=== PATIENT | female | born 1945 | race Caucasian/White ===

== ENCOUNTER 2017-02-18 16:33 | Inpatient (IN) ==
[2017-02-18] MEDS ORDERED: HYDROcodone/CHLORPHENIRAMINE ER 5 ML UDCUP PO ONE ×2 (17:43→18:40)
[2017-02-18] MEDS ORDERED: ALBUTEROL/IPRATROPIUM 3 ML NEB RESP TX STA (17:43)
[2017-02-18 18:59] LABS: Basophils # 0.1 10*3/uL (0.0-0.2); Basophils % 0.8 % (0.0-0.8); Eosinophils # 0.1 10*3/uL (0.0-0.87); Eosinophils % 1.3 % (0.00-10.9); Hematocrit 37.7 VOL% (35.7-47.0); Hemoglobin 12.5 GM/DL (12.0-16.0); Immature Granulocytes % 0.1 %; Immature Granulocytes Absolute 0.01 #; Lymphocytes # 7.1 10*3/uL (1.4-4.0); Lymphocytes % 79.6 % (21.3-54.2); Mean Corpuscular HGB Conc 33.2 GM/DL (32-36); Mean Corpuscular Hemoglobin 29 PG (27-34); Mean Corpuscular Volume 86.3 FL (87-102); Mean Platelet Volume 10.8 FL (9.6-12.0); Monocytes # 0.9 10*3/uL (0.11-0.8); Monocytes % 10.3 % (1.7-12.7); Neutrophils # 0.7 10*3/uL (1.4-7.4); Neutrophils % 7.9 % (38.7-73.9); Platelet Count 147 T/CUMM (130-400); Red Blood Count 4.37 MC/CUMM (3.8-5.5); Red Cell Distribution Width 14.5 % (9.3-17.3); White Blood Count 8.9 T/CUMM (4-12)
[2017-02-18 19:13] LABS: Lactic Acid 0.5 MMOL/L (0.4-2.0)
[2017-02-18 19:15] LABS: Albumin 3.2 G/DL (3.4-5.0); Bilirubin,Total 0.6 MG/DL (0.2-1.0); Calcium 8.1 MG/DL (8.5-10.1); Osmolality,Calculated 275.5 MOS/KG (273-304); Potassium 3.6 MMOL/L (3.5-5.1); Total Protein 5.8 G/DL (6.4-8.3)
[2017-02-18] MEDS ORDERED: AZITHROMYCIN INJ 500 MG in SODIUM CHLORIDE 0.9% 250 ML IV STA (20:02)
[2017-02-18] MEDS ORDERED: cefTRIAXone 1,000 MG in SODIUM CHLORIDE 0.9% 100 ML IV STA (20:02)
[2017-02-18] MEDS ORDERED: cefTRIAXone 1,000 MG VIAL ONE (20:09)
[2017-02-18] MEDS ORDERED: AZITHROMYCIN 500 MG VIAL IV ONE (20:09)
[2017-02-18 20:19] LABS: Apearance,Urine CLEAR (Clear); Bacteria,Urine Occasional /HPF (Few); Bilirubin,Urine Negative (Negative); Blood, Urine Negative (Negative); Glucose,Urine (UA) Negative (Negative); Ketones,Urine Negative (Negative); Nitrite,Urine Negative (Negative); Protein,Urine Negative; RBC,Urine 1 /HPF (0-4); Squamous Epithelial Cell,Urine Occasional /HPF (0-10); Urine Color Yellow (Yellow); Urine Specific Gravity > 1.060 (1.001-1.035); WBC,Urine 1 /HPF (0-6)
[2017-02-18 20:31] LABS: Eosinophils 2 % (0-10); Lymphocytes 90 % (20-55); Platelet Estimate Normal; Segmented Neutrophils 7 % (50-85); Total Cells Counted 100
[2017-02-18 20:32] LABS: Atypical Lymphocytes Moderate; Reactive Lymphocytes Few; Smudge Cells Few
[2017-02-18] MEDS ORDERED: ONDANSETRON 4 MG/2 ML VIAL IV PRN (21:34)
[2017-02-18] MEDS ORDERED: LEVOFLOXACIN INJ 750 MG in PREMIX 1 EACH IV STA (21:37)
[2017-02-18] MEDS: SODIUM CHLORIDE 0.45% 1,000 ML IV SCH (22:43)
[2017-02-18] MEDS: ENOXAPARIN 40 MG/0.4 ML SYRINGE SUBCUT SCH (23:20)
[2017-02-18] MEDS: ALBUTEROL/IPRATROPIUM 3 ML NEB RESP TX SCH (23:30)
[2017-02-19] MEDS: ALBUTEROL/IPRATROPIUM 3 ML NEB RESP TX SCH ×6 (03:11→23:33)
[2017-02-19] MEDS: ACETAMINOPHEN 325 MG TABLET PO PRN (03:32)
[2017-02-19 04:50] LABS: Basophils % 0.3 % (0.0-0.8); Eosinophils # 0.1 10*3/uL (0.0-0.87); Hematocrit 33.9 VOL% (35.7-47.0); Hemoglobin 11.2 GM/DL (12.0-16.0); Lymphocytes # 7.5 10*3/uL (1.4-4.0); Lymphocytes % 76.9 % (21.3-54.2); Mean Corpuscular Hemoglobin 29 PG (27-34); Mean Corpuscular Volume 86.3 FL (87-102); Mean Platelet Volume 10.5 FL (9.6-12.0); Monocytes # 1.5 10*3/uL (0.11-0.8); Monocytes % 14.9 % (1.7-12.7); Neutrophils # 0.7 10*3/uL (1.4-7.4); Neutrophils % 6.9 % (38.7-73.9); Platelet Count 136 T/CUMM (130-400); Red Blood Count 3.93 MC/CUMM (3.8-5.5); Red Cell Distribution Width 14.5 % (9.3-17.3); White Blood Count 9.8 T/CUMM (4-12)
[2017-02-19 05:08] LABS: Calcium 7.8 MG/DL (8.5-10.1); Osmolality,Calculated 276.4 MOS/KG (273-304); Potassium 3.2 MMOL/L (3.5-5.1)
[2017-02-19 06:38] LABS: Eosinophils 1 % (0-10); Lymphocytes 96 % (20-55); Segmented Neutrophils 3 % (50-85); Total Cells Counted 100
[2017-02-19 06:40] LABS: Anisocytosis 1+; Hypochromasia 1+; Platelet Estimate Normal; Tear Drop Cells 1+
[2017-02-19] MEDS: FLUTICASONE 50 MCG NASAL SPRAY 16 GM BOTTLE BOTH NARES SCH ×2 (09:55→23:16)
[2017-02-19] MEDS: amLODIPine 10 MG TABLET PO SCH (09:56)
[2017-02-19] MEDS: PANTOPRAZOLE 40 MG TABLET PO SCH (09:56)
[2017-02-19] MEDS ORDERED: ZALEPLON 5 MG CAPSULE PO PRN (11:04)
[2017-02-19] MEDS ORDERED: PIPERACILLIN/TAZOBACTAM 3,375 MG in SODIUM CHLORIDE 0.9% 100 ML IV SCH (12:00)
[2017-02-19] MEDS: LACTOBACILLUS ACIDOPHILUS/BULGARICUS CAPLET PO SCH ×2 (12:39→21:47)
[2017-02-19] MEDS: AZITHROMYCIN INJ 500 MG in SODIUM CHLORIDE 0.9% 250 ML IV SCH (13:23)
[2017-02-19] MEDS: PIPERACILLIN/TAZOBACTAM 3,375 MG in SODIUM CHLORIDE 0.9% 100 ML IV SCH ×2 (14:47→21:46)
[2017-02-19] MEDS ORDERED: POTASSIUM CHLORIDE 20 MEQ TABLET PO PRN (15:18)
[2017-02-19] MEDS: BENZONATATE 100 MG CAPSULE PO SCH (21:47)
[2017-02-19] MEDS: SODIUM CHLORIDE 0.45% 1,000 ML IV SCH (21:49)
[2017-02-19] MEDS: ENOXAPARIN 40 MG/0.4 ML SYRINGE SUBCUT SCH (23:16)
[2017-02-20] MEDS: ALBUTEROL/IPRATROPIUM 3 ML NEB RESP TX SCH ×6 (03:53→23:10)
[2017-02-20] MEDS: PIPERACILLIN/TAZOBACTAM 3,375 MG in SODIUM CHLORIDE 0.9% 100 ML IV SCH ×3 (05:05→21:37)
[2017-02-20] MEDS: BENZONATATE 100 MG CAPSULE PO SCH ×2 (09:36→21:37)
[2017-02-20] MEDS: PANTOPRAZOLE 40 MG TABLET PO SCH (09:36)
[2017-02-20] MEDS: MULTIVITAMIN (BEROCCA) TABLET PO SCH (09:36)
[2017-02-20] MEDS: LACTOBACILLUS ACIDOPHILUS/BULGARICUS CAPLET PO SCH ×2 (09:36→21:37)
[2017-02-20] MEDS: amLODIPine 10 MG TABLET PO SCH (09:36)
[2017-02-20] MEDS: FLUTICASONE 50 MCG NASAL SPRAY 16 GM BOTTLE BOTH NARES SCH ×2 (09:48→21:58)
[2017-02-20] MEDS: AZITHROMYCIN INJ 500 MG in SODIUM CHLORIDE 0.9% 250 ML IV SCH (12:16)
[2017-02-20] MEDS: SODIUM CHLORIDE 0.45% 1,000 ML IV SCH ×2 (12:17→19:49)
[2017-02-20] MEDS: ACETAMINOPHEN 325 MG TABLET PO PRN (17:02)
[2017-02-20] MEDS: VANCOMYCIN INJ 1,250 MG in SODIUM CHLORIDE 0.45% 250 ML IV SCH (19:44)
[2017-02-20] MEDS: ENOXAPARIN 40 MG/0.4 ML SYRINGE SUBCUT SCH (21:36)
[2017-02-21] MEDS: VANCOMYCIN INJ 1,250 MG in SODIUM CHLORIDE 0.45% 250 ML IV SCH ×3 (03:00→18:29)
[2017-02-21] MEDS: ALBUTEROL/IPRATROPIUM 3 ML NEB RESP TX SCH ×5 (03:58→21:25)
[2017-02-21] MEDS: PIPERACILLIN/TAZOBACTAM 3,375 MG in SODIUM CHLORIDE 0.9% 100 ML IV SCH ×3 (04:56→22:52)
[2017-02-21] MEDS: AZITHROMYCIN INJ 500 MG in SODIUM CHLORIDE 0.9% 250 ML IV SCH (08:21)
[2017-02-21] MEDS: ESCITALOPRAM 10 MG TABLET PO SCH (08:23)
[2017-02-21] MEDS: ACETAMINOPHEN 325 MG TABLET PO PRN (08:23)
[2017-02-21] MEDS: LACTOBACILLUS ACIDOPHILUS/BULGARICUS CAPLET PO SCH ×2 (08:23→20:47)
[2017-02-21] MEDS: MULTIVITAMIN (BEROCCA) TABLET PO SCH (08:24)
[2017-02-21] MEDS: BENZONATATE 100 MG CAPSULE PO SCH ×2 (08:24→20:47)
[2017-02-21] MEDS: FLUTICASONE 50 MCG NASAL SPRAY 16 GM BOTTLE BOTH NARES SCH ×2 (08:24→20:47)
[2017-02-21] MEDS: PANTOPRAZOLE 40 MG TABLET PO SCH (08:24)
[2017-02-21] MEDS: amLODIPine 10 MG TABLET PO SCH (08:24)
[2017-02-21] MEDS: methylPREDNISolone SOD SUC 125 MG/2 ML VIAL IV SCH (11:23)
[2017-02-21 12:57] LABS: Calcium 7.9 MG/DL (8.5-10.1); Osmolality,Calculated 278.4 MOS/KG (273-304)
[2017-02-21] MEDS: ENOXAPARIN 40 MG/0.4 ML SYRINGE SUBCUT SCH (20:46)
[2017-02-22] MEDS: methylPREDNISolone SOD SUC 125 MG/2 ML VIAL IV SCH ×2 (00:14→11:54)
[2017-02-22] MEDS: ALBUTEROL/IPRATROPIUM 3 ML NEB RESP TX SCH ×7 (00:28→23:25)
[2017-02-22] MEDS: VANCOMYCIN INJ 1,250 MG in SODIUM CHLORIDE 0.45% 250 ML IV SCH ×2 (03:06→11:55)
[2017-02-22 05:34] LABS: Basophils # 0.1 10*3/uL (0.0-0.2); Basophils % 0.6 % (0.0-0.8); Hematocrit 37.3 VOL% (35.7-47.0); Hemoglobin 11.9 GM/DL (12.0-16.0); Immature Granulocytes % 0.4 %; Immature Granulocytes Absolute 0.06 #; Lymphocytes # 14.5 10*3/uL (1.4-4.0); Lymphocytes % 85.3 % (21.3-54.2); Mean Corpuscular HGB Conc 31.9 GM/DL (32-36); Mean Corpuscular Hemoglobin 28 PG (27-34); Mean Corpuscular Volume 88.2 FL (87-102); Mean Platelet Volume 11.4 FL (9.6-12.0); Monocytes # 1.1 10*3/uL (0.11-0.8); Monocytes % 6.4 % (1.7-12.7); Neutrophils # 1.2 10*3/uL (1.4-7.4); Neutrophils % 7.3 % (38.7-73.9); Platelet Count 166 T/CUMM (130-400); Red Blood Count 4.23 MC/CUMM (3.8-5.5); Red Cell Distribution Width 14.5 % (9.3-17.3)
[2017-02-22] MEDS: SODIUM CHLORIDE 0.45% 1,000 ML IV SCH (06:00)
[2017-02-22 06:03] LABS: Atypical Lymphocytes Moderate; Lymphocytes 90 % (20-55); Segmented Neutrophils 8 % (50-85); Smudge Cells Few; Total Cells Counted 100
[2017-02-22 06:06] LABS: Hypochromasia 1+; Microcytosis 1+
[2017-02-22 06:07] LABS: Ovalocytes Slight
[2017-02-22 06:08] LABS: Platelet Estimate Adequate
[2017-02-22] MEDS: PIPERACILLIN/TAZOBACTAM 3,375 MG in SODIUM CHLORIDE 0.9% 100 ML IV SCH ×3 (06:38→20:39)
[2017-02-22] MEDS: LACTOBACILLUS ACIDOPHILUS/BULGARICUS CAPLET PO SCH ×2 (08:38→20:38)
[2017-02-22] MEDS: MULTIVITAMIN (CENTRUM) TABLET PO SCH (08:38)
[2017-02-22] MEDS: MULTIVITAMIN (BEROCCA) TABLET PO SCH (08:38)
[2017-02-22] MEDS: BENZONATATE 100 MG CAPSULE PO SCH ×2 (08:38→20:38)
[2017-02-22] MEDS: ESCITALOPRAM 10 MG TABLET PO SCH (08:39)
[2017-02-22] MEDS: PANTOPRAZOLE 40 MG TABLET PO SCH (08:39)
[2017-02-22] MEDS: amLODIPine 10 MG TABLET PO SCH (08:39)
[2017-02-22] MEDS: FLUTICASONE 50 MCG NASAL SPRAY 16 GM BOTTLE BOTH NARES SCH ×2 (08:39→20:40)
[2017-02-22] MEDS ORDERED: ESCITALOPRAM 10 MG TABLET PO SCH (09:00)
[2017-02-22 09:23] LABS: Calcium 8.6 MG/DL (8.5-10.1); Magnesium 2.4 MG/DL (1.8-2.4); Osmolality,Calculated 288.1 MOS/KG (273-304); Potassium 3.4 MMOL/L (3.5-5.1)
[2017-02-22] MEDS: AZITHROMYCIN INJ 500 MG in SODIUM CHLORIDE 0.9% 250 ML IV SCH (10:27)
[2017-02-22] MEDS: BISACODYL 5 MG TABLET PO PRN ×2 (14:14→17:46)
[2017-02-22] MEDS: ENOXAPARIN 40 MG/0.4 ML SYRINGE SUBCUT SCH (20:39)
[2017-02-23] MEDS: SODIUM CHLORIDE 0.45% 1,000 ML IV SCH
[2017-02-23] MEDS: VANCOMYCIN INJ 1,250 MG in SODIUM CHLORIDE 0.45% 250 ML IV SCH ×2 (00:39→13:26)
[2017-02-23] MEDS: methylPREDNISolone SOD SUC 125 MG/2 ML VIAL IV SCH ×3 (00:40→21:47)
[2017-02-23] MEDS: ALBUTEROL/IPRATROPIUM 3 ML NEB RESP TX SCH ×5 (02:21→19:13)
[2017-02-23] MEDS: PIPERACILLIN/TAZOBACTAM 3,375 MG in SODIUM CHLORIDE 0.9% 100 ML IV SCH ×3 (04:49→21:50)
[2017-02-23] MEDS: LACTOBACILLUS ACIDOPHILUS/BULGARICUS CAPLET PO SCH ×2 (09:50→21:45)
[2017-02-23] MEDS: MULTIVITAMIN (BEROCCA) TABLET PO SCH (09:51)
[2017-02-23] MEDS: ESCITALOPRAM 10 MG TABLET PO SCH (09:51)
[2017-02-23] MEDS: BENZONATATE 100 MG CAPSULE PO SCH ×2 (09:51→21:46)
[2017-02-23] MEDS: PANTOPRAZOLE 40 MG TABLET PO SCH (09:51)
[2017-02-23] MEDS: MULTIVITAMIN (CENTRUM) TABLET PO SCH (09:51)
[2017-02-23] MEDS: FLUTICASONE 50 MCG NASAL SPRAY 16 GM BOTTLE BOTH NARES SCH ×2 (09:51→21:55)
[2017-02-23] MEDS: amLODIPine 10 MG TABLET PO SCH (09:51)
[2017-02-23] MEDS: BISACODYL 5 MG TABLET PO PRN (09:52)
[2017-02-23] MEDS: AZITHROMYCIN INJ 500 MG in SODIUM CHLORIDE 0.9% 250 ML IV SCH (11:18)
[2017-02-23] MEDS ORDERED: FUROSEMIDE 20 MG/2 ML VIAL IM ONE (13:44)
[2017-02-23] MEDS ORDERED: FUROSEMIDE 20 MG/2 ML VIAL IV ONE (16:00)
[2017-02-23] MEDS: ENOXAPARIN 40 MG/0.4 ML SYRINGE SUBCUT SCH (21:53)
[2017-02-24] MEDS: ALBUTEROL/IPRATROPIUM 3 ML NEB RESP TX SCH ×7 (00:31→23:34)
[2017-02-24] MEDS: VANCOMYCIN INJ 1,250 MG in SODIUM CHLORIDE 0.45% 250 ML IV SCH ×3 (01:53→19:20)
[2017-02-24] MEDS: PIPERACILLIN/TAZOBACTAM 3,375 MG in SODIUM CHLORIDE 0.9% 100 ML IV SCH ×3 (05:18→21:54)
[2017-02-24 05:43] LABS: Basophils # 0.1 10*3/uL (0.0-0.2); Basophils % 0.5 % (0.0-0.8); Hematocrit 34.3 VOL% (35.7-47.0); Immature Granulocytes % 0.8 %; Immature Granulocytes Absolute 0.23 #; Lymphocytes # 23.8 10*3/uL (1.4-4.0); Lymphocytes % 85.5 % (21.3-54.2); Mean Corpuscular HGB Conc 32.1 GM/DL (32-36); Mean Corpuscular Hemoglobin 28 PG (27-34); Mean Corpuscular Volume 87.5 FL (87-102); Mean Platelet Volume 10.6 FL (9.6-12.0); Monocytes # 2.2 10*3/uL (0.11-0.8); Monocytes % 7.9 % (1.7-12.7); Neutrophils # 1.5 10*3/uL (1.4-7.4); Neutrophils % 5.3 % (38.7-73.9); Platelet Count 192 T/CUMM (130-400); Red Blood Count 3.92 MC/CUMM (3.8-5.5); Red Cell Distribution Width 14.9 % (9.3-17.3); White Blood Count 27.8 T/CUMM (4-12)
[2017-02-24 06:21] LABS: Magnesium 2.2 MG/DL (1.8-2.4); Osmolality,Calculated 287.3 MOS/KG (273-304); Potassium 3.6 MMOL/L (3.5-5.1)
[2017-02-24 06:27] LABS: Band Neutrophils 2 % (0-10); Lymphocytes 85 % (20-55); Metamyelocytes 1 %; Myelocytes 1 %; Segmented Neutrophils 9 % (50-85); Total Cells Counted 100
[2017-02-24 06:28] LABS: Platelet Estimate Normal
[2017-02-24] MEDS: MULTIVITAMIN (BEROCCA) TABLET PO SCH (10:00)
[2017-02-24] MEDS: LACTOBACILLUS ACIDOPHILUS/BULGARICUS CAPLET PO SCH ×2 (10:00→21:52)
[2017-02-24] MEDS: amLODIPine 10 MG TABLET PO SCH (10:00)
[2017-02-24] MEDS: ESCITALOPRAM 10 MG TABLET PO SCH (10:00)
[2017-02-24] MEDS: BENZONATATE 100 MG CAPSULE PO SCH ×2 (10:01→21:57)
[2017-02-24] MEDS: MULTIVITAMIN (CENTRUM) TABLET PO SCH (10:01)
[2017-02-24] MEDS: PANTOPRAZOLE 40 MG TABLET PO SCH (10:01)
[2017-02-24] MEDS: FLUTICASONE 50 MCG NASAL SPRAY 16 GM BOTTLE BOTH NARES SCH ×2 (10:03→21:54)
[2017-02-24] MEDS: methylPREDNISolone SOD SUC 125 MG/2 ML VIAL IV SCH (10:03)
[2017-02-24] MEDS: ACETAMINOPHEN 325 MG TABLET PO PRN ×2 (12:11→23:15)
[2017-02-24] MEDS: AZITHROMYCIN INJ 500 MG in SODIUM CHLORIDE 0.9% 250 ML IV SCH (12:12)
[2017-02-24] MEDS: FLUCONAZOLE 100 MG TABLET PO SCH (13:38)
[2017-02-24] MEDS: ENOXAPARIN 40 MG/0.4 ML SYRINGE SUBCUT SCH (21:59)
[2017-02-25] MEDS: VANCOMYCIN INJ 1,250 MG in SODIUM CHLORIDE 0.45% 250 ML IV SCH ×2 (03:48→15:08)
[2017-02-25] MEDS: ALBUTEROL/IPRATROPIUM 3 ML NEB RESP TX SCH ×5 (04:11→19:49)
[2017-02-25] MEDS: PIPERACILLIN/TAZOBACTAM 3,375 MG in SODIUM CHLORIDE 0.9% 100 ML IV SCH ×3 (05:45→23:20)
[2017-02-25] MEDS ORDERED: ALBUTEROL/IPRATROPIUM 3 ML NEB RESP TX PRN (06:13)
[2017-02-25] MEDS ORDERED: GLYCOPYRROLATE 0.4 MG/2 ML VIAL IM ONE (07:00)
[2017-02-25] MEDS ORDERED: PROMETHAZINE 25 MG/1 ML VIAL IM ONE (07:00)
[2017-02-25] MEDS ORDERED: MEPERIDINE 50 MG/1 ML VIAL IM ONE (07:00)
[2017-02-25] MEDS ORDERED: MIDAZOLAM 2 MG/2 ML VIAL ONE (07:02)
[2017-02-25] MEDS ORDERED: LIDOCAINE 1% 20 ML VIAL MISC INJ ONE (07:30)
[2017-02-25] MEDS ORDERED: MIDAZOLAM 2 MG/2 ML VIAL IV ONE ×2 (07:30→21:01)
[2017-02-25] MEDS ORDERED: LIDOCAINE 2% VISCOUS 100 ML BOTTLE SWISH/SPIT ONE (07:30)
[2017-02-25] MEDS ORDERED: LIDOCAINE 2% 20 ML VIAL RESP TX ONE (07:30)
[2017-02-25] MEDS ORDERED: FUROSEMIDE 40 MG/4 ML VIAL IV ONE (09:00)
[2017-02-25] MEDS ORDERED: methylPREDNISolone SOD SUC 40 MG/1 ML VIAL IV SCH (09:00)
[2017-02-25] MEDS: methylPREDNISolone SOD SUC 40 MG/1 ML VIAL IV SCH ×2 (09:37→16:58)
[2017-02-25] MEDS: BENZONATATE 100 MG CAPSULE PO SCH (10:26)
[2017-02-25] MEDS: amLODIPine 10 MG TABLET PO SCH (10:26)
[2017-02-25] MEDS: LACTOBACILLUS ACIDOPHILUS/BULGARICUS CAPLET PO SCH ×2 (10:26→23:59)
[2017-02-25] MEDS: MULTIVITAMIN (CENTRUM) TABLET PO SCH (10:26)
[2017-02-25] MEDS: MULTIVITAMIN (BEROCCA) TABLET PO SCH (10:26)
[2017-02-25] MEDS: PANTOPRAZOLE 40 MG TABLET PO SCH (10:27)
[2017-02-25] MEDS: FLUCONAZOLE 100 MG TABLET PO SCH (10:27)
[2017-02-25] MEDS: FLUTICASONE 50 MCG NASAL SPRAY 16 GM BOTTLE BOTH NARES SCH (10:27)
[2017-02-25] MEDS: ESCITALOPRAM 10 MG TABLET PO SCH (10:27)
[2017-02-25] MEDS ORDERED: DILTIAZEM 50 MG/10 ML VIAL IV ONE (13:49)
[2017-02-25] MEDS: DILTIAZEM INJ 100 MG in SODIUM CHLORIDE 0.9% 100 ML IV SCH ×2 (14:04→21:11)
[2017-02-25 14:06] LABS: Hematocrit 38.1 VOL% (35.7-47.0); Hemoglobin 12.4 GM/DL (12.0-16.0); Immature Granulocytes % 0.6 %; Immature Granulocytes Absolute 0.41 #; Lymphocytes # 57.8 10*3/uL (1.4-4.0); Lymphocytes % 91.3 % (21.3-54.2); Mean Corpuscular HGB Conc 32.5 GM/DL (32-36); Mean Corpuscular Hemoglobin 28 PG (27-34); Mean Corpuscular Volume 86.6 FL (87-102); Mean Platelet Volume 10.1 FL (9.6-12.0); Monocytes # 3.3 10*3/uL (0.11-0.8); Monocytes % 5.2 % (1.7-12.7); Neutrophils # 1.8 10*3/uL (1.4-7.4); Neutrophils % 2.9 % (38.7-73.9); Platelet Count 213 T/CUMM (130-400)
[2017-02-25 14:07] LABS: ABG Base Excess 7.1 MMOL/L (-2.5-2.5); ABG HCO3 30.6 MMOL/L (20-26); ABG Oxygen Saturation 86.6 % (95-100); ABG PCO2 34.9 MM HG (35-48); ABG PH 7.539 (7.35-7.45); ABG PO2 49.3 MM HG (80-95)
[2017-02-25] MEDS ORDERED: AMIODARONE INJ 150 MG in DEXTROSE 5% 100 ML IV ONE (14:20)
[2017-02-25] MEDS ORDERED: SODIUM CHLORIDE 0.9% 1,000 ML IV ONE (14:20)
[2017-02-25 14:22] LABS: White Blood Count 63.3 T/CUMM (4-12)
[2017-02-25] MEDS ORDERED: AMIODARONE INJ 450 MG in DEXTROSE 5% 241 ML IV SCH (14:30)
[2017-02-25 14:37] LABS: Calcium 8.2 MG/DL (8.5-10.1); Osmolality,Calculated 273.2 MOS/KG (273-304); Potassium 3.4 MMOL/L (3.5-5.1)
[2017-02-25 14:47] LABS: Lymphocytes 93 % (20-55); Metamyelocytes 1 %; Myelocytes 1 %; Polychromasia Few; Segmented Neutrophils 5 % (50-85); Total Cells Counted 100
[2017-02-25 14:48] LABS: Atypical Lymphocytes Few; Platelet Estimate Adequate
[2017-02-25 14:49] LABS: Albumin 3.1 G/DL (3.4-5.0); Calcium 8.5 MG/DL (8.5-10.1); Magnesium 2.1 MG/DL (1.8-2.4); Osmolality,Calculated 274.1 MOS/KG (273-304); Phosphorous 4.2 MG/DL (2.5-4.9); Potassium 3.4 MMOL/L (3.5-5.1); Troponin I Only 0.034 NG/ML (0.00-0.045)
[2017-02-25] MEDS: SODIUM CHLORIDE 0.9% 1,000 ML IV SCH (15:16)
[2017-02-25] MEDS: ENOXAPARIN 80 MG/0.8 ML SYRINGE SUBCUT SCH (16:58)
[2017-02-25] MEDS ORDERED: MEPERIDINE 50 MG/1 ML VIAL ONE (20:20)
[2017-02-25] MEDS ORDERED: MIDAZOLAM 10 MG/2 ML VIAL ONE (20:20)
[2017-02-25] MEDS ORDERED: FLUMAZENIL 0.5 MG/5 ML VIAL IV ONE (20:30)
[2017-02-25] MEDS ORDERED: MEPERIDINE 25 MG/1 ML VIAL IV ONE (21:01)
[2017-02-25] MEDS: DIGOXIN 0.5 MG/2 ML AMP IV SCH ×2 (21:30→23:30)
[2017-02-25] MEDS ORDERED: SODIUM CHLORIDE 0.9% 250 ML IV ONE (21:30)
[2017-02-26] MEDS: AMIODARONE INJ 450 MG in DEXTROSE 5% 241 ML IV SCH ×2 (00:25→19:53)
[2017-02-26] MEDS: FLUTICASONE 50 MCG NASAL SPRAY 16 GM BOTTLE BOTH NARES SCH ×3 (00:31→21:51)
[2017-02-26] MEDS: ALBUTEROL/IPRATROPIUM 3 ML NEB RESP TX SCH ×6 (00:51→18:50)
[2017-02-26] MEDS: DIGOXIN 0.5 MG/2 ML AMP IV SCH ×2 (01:30→06:19)
[2017-02-26] MEDS: methylPREDNISolone SOD SUC 40 MG/1 ML VIAL IV SCH ×3 (01:37→17:28)
[2017-02-26] MEDS: VANCOMYCIN INJ 1,250 MG in SODIUM CHLORIDE 0.45% 250 ML IV SCH ×3 (01:40→21:43)
[2017-02-26] MEDS: ENOXAPARIN 80 MG/0.8 ML SYRINGE SUBCUT SCH ×2 (03:45→15:11)
[2017-02-26] MEDS: SODIUM CHLORIDE 0.9% 1,000 ML IV SCH ×4 (06:17→21:42)
[2017-02-26 06:21] LABS: Albumin 2.3 G/DL (3.4-5.0); Calcium 7.3 MG/DL (8.5-10.1); Osmolality,Calculated 287.5 MOS/KG (273-304); Phosphorous 4.3 MG/DL (2.5-4.9); Potassium 3.3 MMOL/L (3.5-5.1)
[2017-02-26] MEDS: PIPERACILLIN/TAZOBACTAM 3,375 MG in SODIUM CHLORIDE 0.9% 100 ML IV SCH ×3 (06:34→22:45)
[2017-02-26] MEDS: LACTOBACILLUS ACIDOPHILUS/BULGARICUS CAPLET PO SCH ×2 (08:19→22:00)
[2017-02-26] MEDS: FLUCONAZOLE 100 MG TABLET PO SCH (08:20)
[2017-02-26] MEDS: PANTOPRAZOLE 40 MG TABLET PO SCH (08:20)
[2017-02-26] MEDS: MULTIVITAMIN (BEROCCA) TABLET PO SCH (08:20)
[2017-02-26] MEDS: amLODIPine 10 MG TABLET PO SCH (08:20)
[2017-02-26] MEDS: BENZONATATE 100 MG CAPSULE PO SCH ×3 (08:20→22:00)
[2017-02-26] MEDS: MULTIVITAMIN (CENTRUM) TABLET PO SCH (08:20)
[2017-02-26] MEDS: AMIODARONE 200 MG TABLET PO SCH ×2 (08:20→22:00)
[2017-02-26] MEDS: ESCITALOPRAM 10 MG TABLET PO SCH (08:21)
[2017-02-26] MEDS: POTASSIUM CHLORIDE 20 MEQ TABLET PO SCH (08:21)
[2017-02-26 13:05] LABS: Hematocrit 37.2 VOL% (35.7-47.0); Hemoglobin 11.7 GM/DL (12.0-16.0); Immature Granulocytes % 0.5 %; Immature Granulocytes Absolute 0.25 #; Lymphocytes # 43.2 10*3/uL (1.4-4.0); Lymphocytes % 91.6 % (21.3-54.2); Mean Corpuscular HGB Conc 31.5 GM/DL (32-36); Mean Corpuscular Hemoglobin 28 PG (27-34); Mean Platelet Volume 10.7 FL (9.6-12.0); Monocytes # 1.4 10*3/uL (0.11-0.8); Neutrophils # 2.3 10*3/uL (1.4-7.4); Neutrophils % 4.9 % (38.7-73.9); Platelet Count 187 T/CUMM (130-400); Red Blood Count 4.18 MC/CUMM (3.8-5.5); Red Cell Distribution Width 14.8 % (9.3-17.3)
[2017-02-26 13:13] LABS: White Blood Count 47.1 T/CUMM (4-12)
[2017-02-26 14:33] LABS: Alanine Aminotransferase 36 U/L (13-56); Albumin 2.5 G/DL (3.4-5.0); Alkaline Phosphatase 86 U/L (45-117); Aspartate Amino Transferase 30 U/L (0-37); Blood Urea Nitrogen 17 MG/DL (7-18); Calcium 7.8 MG/DL (8.5-10.1); Glucose 295 MG/DL (74-106); Immunoglobulin A 120 MG/DL (70-400); Immunoglobulin G 468 MG/DL (700-1600); Immunoglobulin M < 21 MG/DL (40-230); Magnesium 2.4 MG/DL (1.8-2.4); Osmolality,Calculated 285.8 MOS/KG (273-304); Potassium 3.4 MMOL/L (3.5-5.1); Sodium 137 MMOL/L (136-145); Total Protein 5.4 G/DL (6.4-8.3)
[2017-02-26 15:06] LABS: Band Neutrophils 1 % (0-10); Lymphocytes 90 % (20-55); Segmented Neutrophils 9 % (50-85); Total Cells Counted 100
[2017-02-26 15:07] LABS: Anisocytosis 1+; Ovalocytes Few; Platelet Estimate Normal
[2017-02-26] MEDS: ACETAMINOPHEN 325 MG TABLET PO PRN ×2 (15:11→19:49)
[2017-02-26] MEDS ORDERED: FUROSEMIDE 40 MG/4 ML VIAL ONE (18:15)
[2017-02-26] MEDS ORDERED: FUROSEMIDE 40 MG/4 ML VIAL IV STA (18:19)
[2017-02-26] MEDS ORDERED: SUCCINYLCHOLINE 200 MG/10 ML VIAL ONE (18:53)
[2017-02-26] MEDS ORDERED: ETOMIDATE 20 MG/10 ML VIAL IV ONE ×2 (18:53→19:00)
[2017-02-26] MEDS ORDERED: SUCCINYLCHOLINE 200 MG/10 ML VIAL IV ONE (19:00)
[2017-02-26 19:03] LABS: ABG Base Excess 1.8 MMOL/L (-2.5-2.5); ABG HCO3 27.9 MMOL/L (20-26); ABG Oxygen Saturation 82.2 % (95-100); ABG PH 7.365 (7.35-7.45); ABG TCO2 29.5 MMOL/L (23-27)
[2017-02-26] MEDS ORDERED: PROPOFOL 1,000 MG/100 ML BOTTLE IV ONE (19:03)
[2017-02-26 19:37] LABS: ABG Base Excess 1.8 MMOL/L (-2.5-2.5); ABG HCO3 29.1 MMOL/L (20-26); ABG Oxygen Saturation 93.8 % (95-100); ABG PCO2 57.7 MM HG (35-48); ABG PH 7.321 (7.35-7.45); ABG PO2 77.7 MM HG (80-95); ABG TCO2 30.9 MMOL/L (23-27)
[2017-02-26] MEDS ORDERED: MIDAZOLAM 10 MG/2 ML VIAL ONE (19:44)
[2017-02-26] MEDS: PROPOFOL 1,000 MG/100 ML BOTTLE IV SCH ×2 (19:49→21:50)
[2017-02-26] MEDS: DILTIAZEM INJ 100 MG in SODIUM CHLORIDE 0.9% 100 ML IV SCH (19:53)
[2017-02-26] MEDS: fentaNYL INJ 1,250 MCG in SODIUM CHLORIDE 0.9% 225 ML IV SCH (20:18)
[2017-02-26] MEDS ORDERED: MIDAZOLAM 2 MG/2 ML VIAL IV ONE (20:22)
[2017-02-26] MEDS: POTASSIUM CHLORIDE 20 MEQ/15 ML UDCUP PER TUBE PRN (22:00)
[2017-02-27] MEDS: methylPREDNISolone SOD SUC 40 MG/1 ML VIAL IV SCH ×3 (01:21→17:14)
[2017-02-27] MEDS: POTASSIUM CHLORIDE 20 MEQ/15 ML UDCUP PER TUBE PRN ×2 (01:23→03:57)
[2017-02-27] MEDS: ALBUTEROL/IPRATROPIUM 3 ML NEB RESP TX SCH ×6 (02:09→19:44)
[2017-02-27] MEDS: ENOXAPARIN 80 MG/0.8 ML SYRINGE SUBCUT SCH (03:56)
[2017-02-27 04:12] LABS: ABG Base Excess 3.6 MMOL/L (-2.5-2.5); ABG HCO3 27.9 MMOL/L (20-26); ABG Oxygen Saturation 98.8 % (95-100); ABG PCO2 41.5 MM HG (35-48); ABG PH 7.446 (7.35-7.45); ABG TCO2 29.2 MMOL/L (23-27)
[2017-02-27] MEDS: PROPOFOL 1,000 MG/100 ML BOTTLE IV SCH ×4 (04:32→19:09)
[2017-02-27] MEDS: VANCOMYCIN INJ 1,250 MG in SODIUM CHLORIDE 0.45% 250 ML IV SCH ×2 (05:28→16:37)
[2017-02-27] MEDS: PIPERACILLIN/TAZOBACTAM 3,375 MG in SODIUM CHLORIDE 0.9% 100 ML IV SCH ×3 (05:34→22:22)
[2017-02-27 05:44] LABS: Hematocrit 33.4 VOL% (35.7-47.0); Hemoglobin 10.5 GM/DL (12.0-16.0); Immature Granulocytes % 1.2 %; Immature Granulocytes Absolute 0.43 #; Lymphocytes % 91.2 % (21.3-54.2); Mean Corpuscular HGB Conc 31.4 GM/DL (32-36); Mean Corpuscular Hemoglobin 28 PG (27-34); Mean Corpuscular Volume 88.4 FL (87-102); Mean Platelet Volume 10.8 FL (9.6-12.0); Monocytes # 1.1 10*3/uL (0.11-0.8); Monocytes % 2.9 % (1.7-12.7); Neutrophils # 1.7 10*3/uL (1.4-7.4); Neutrophils % 4.7 % (38.7-73.9); Platelet Count 174 T/CUMM (130-400); Red Blood Count 3.78 MC/CUMM (3.8-5.5); Red Cell Distribution Width 15.1 % (9.3-17.3); White Blood Count 36.1 T/CUMM (4-12)
[2017-02-27 06:05] LABS: Calcium 7.5 MG/DL (8.5-10.1); Magnesium 2.3 MG/DL (1.8-2.4); Osmolality,Calculated 292.3 MOS/KG (273-304); Potassium 4.4 MMOL/L (3.5-5.1)
[2017-02-27 06:08] LABS: Atypical Lymphocytes Few; Hypochromasia 1+; Lymphocytes 90 % (20-55); Microcytosis 1+; Segmented Neutrophils 9 % (50-85); Smudge Cells Few; Total Cells Counted 100
[2017-02-27 06:09] LABS: Platelet Estimate Adequate
[2017-02-27] MEDS: SODIUM CHLORIDE 0.9% 1,000 ML IV SCH (07:06)
[2017-02-27] MEDS ORDERED: GLUCAGON 1 MG VIAL IM PRN (08:32)
[2017-02-27] MEDS ORDERED: DEXTROSE 50% 25 GM/50 ML VIAL IV PRN (08:32)
[2017-02-27] MEDS: MULTIVITAMIN (BEROCCA) TABLET PO SCH (09:51)
[2017-02-27] MEDS: amLODIPine 10 MG TABLET PO SCH (09:51)
[2017-02-27] MEDS: MULTIVITAMIN (CENTRUM) TABLET PO SCH (09:51)
[2017-02-27] MEDS: ENOXAPARIN 40 MG/0.4 ML SYRINGE SUBCUT SCH (09:51)
[2017-02-27] MEDS: ESCITALOPRAM 10 MG TABLET PO SCH (09:52)
[2017-02-27] MEDS: BENZONATATE 100 MG CAPSULE PO SCH ×2 (09:52→22:20)
[2017-02-27] MEDS: LACTOBACILLUS ACIDOPHILUS/BULGARICUS CAPLET PO SCH ×2 (09:52→22:21)
[2017-02-27] MEDS: POTASSIUM CHLORIDE 20 MEQ TABLET PO SCH (09:52)
[2017-02-27] MEDS: AMIODARONE 200 MG TABLET PO SCH ×2 (09:52→22:21)
[2017-02-27] MEDS: FLUCONAZOLE 100 MG TABLET PO SCH (10:01)
[2017-02-27] MEDS: FLUTICASONE 50 MCG NASAL SPRAY 16 GM BOTTLE BOTH NARES SCH ×2 (10:02→21:35)
[2017-02-27] MEDS: PANTOPRAZOLE 40 MG TABLET PO SCH (10:03)
[2017-02-27] MEDS: LANSOPRAZOLE ODT 30 MG TABLET PO SCH (10:05)
[2017-02-27] MEDS ORDERED: amLODIPine 10 MG TABLET PO SCH (12:26)
[2017-02-27] MEDS: INSULIN LISPRO 100 UNIT/ML SUBCUT SCH ×2 (12:32→18:13)
[2017-02-27] MEDS: DEXTROSE 5% IV SCH ×2 (12:34→18:13)
[2017-02-27] MEDS: TRIMETH IV SCH ×2 (12:34→18:13)
[2017-02-27] MEDS: SULFAMETH IV SCH ×2 (12:34→18:13)
[2017-02-27] MEDS: FUROSEMIDE 20 MG/2 ML VIAL IV SCH (16:37)
[2017-02-27] MEDS: fentaNYL INJ 1,250 MCG in SODIUM CHLORIDE 0.9% 225 ML IV SCH (20:21)
[2017-02-28] MEDS: methylPREDNISolone SOD SUC 40 MG/1 ML VIAL IV SCH ×3 (00:39→17:19)
[2017-02-28] MEDS: INSULIN LISPRO 100 UNIT/ML SUBCUT SCH ×4 (00:40→18:55)
[2017-02-28] MEDS: ALBUTEROL/IPRATROPIUM 3 ML NEB RESP TX SCH ×7 (00:46→22:55)
[2017-02-28] MEDS: TRIMETH IV SCH ×4 (01:06→17:19)
[2017-02-28] MEDS: SULFAMETH IV SCH ×4 (01:06→17:19)
[2017-02-28] MEDS: DEXTROSE 5% IV SCH ×4 (01:06→17:19)
[2017-02-28] MEDS: VANCOMYCIN INJ 1,250 MG in SODIUM CHLORIDE 0.45% 250 ML IV SCH ×2 (03:00→14:51)
[2017-02-28 03:51] LABS: ABG HCO3 25.3 MMOL/L (20-26); ABG Oxygen Saturation 93.1 % (95-100); ABG PCO2 39.2 MM HG (35-48); ABG PH 7.428 (7.35-7.45); ABG PO2 65.5 MM HG (80-95); ABG TCO2 26.5 MMOL/L (23-27); Allen Test Positive; Pt O2 Delivery Device Ventilator
[2017-02-28 05:21] LABS: Basophils # 0.2 10*3/uL (0.0-0.2); Basophils % 0.5 % (0.0-0.8); Hematocrit 30.2 VOL% (35.7-47.0); Hemoglobin 9.5 GM/DL (12.0-16.0); Immature Granulocytes % 1.1 %; Immature Granulocytes Absolute 0.41 #; Lymphocytes # 35.1 10*3/uL (1.4-4.0); Lymphocytes % 93.6 % (21.3-54.2); Mean Corpuscular HGB Conc 31.5 GM/DL (32-36); Mean Corpuscular Hemoglobin 28 PG (27-34); Mean Corpuscular Volume 88.8 FL (87-102); Mean Platelet Volume 11.2 FL (9.6-12.0); Monocytes # 0.5 10*3/uL (0.11-0.8); Monocytes % 1.3 % (1.7-12.7); Neutrophils # 1.3 10*3/uL (1.4-7.4); Neutrophils % 3.5 % (38.7-73.9); Platelet Count 142 T/CUMM (130-400); Red Cell Distribution Width 15.2 % (9.3-17.3); White Blood Count 37.5 T/CUMM (4-12)
[2017-02-28] MEDS: PIPERACILLIN/TAZOBACTAM 3,375 MG in SODIUM CHLORIDE 0.9% 100 ML IV SCH ×3 (05:37→21:43)
[2017-02-28] MEDS: PROPOFOL 1,000 MG/100 ML BOTTLE IV SCH ×3 (05:43→19:23)
[2017-02-28 05:44] LABS: Elliptocytes Few; Giant Platelets Few; Hypochromasia Slight; Lymphocytes 93 % (20-55); Platelet Estimate Normal; Segmented Neutrophils 7 % (50-85); Smudge Cells Few; Total Cells Counted 100
[2017-02-28 05:45] LABS: Atypical Lymphocytes Few; Microcytosis Slight
[2017-02-28 06:00] LABS: Alanine Aminotransferase 41 U/L (13-56); Albumin 1.9 G/DL (3.4-5.0); Alkaline Phosphatase 93 U/L (45-117); Aspartate Amino Transferase 32 U/L (0-37); Bilirubin,Total < 0.39 MG/DL (0.2-1.0); Blood Urea Nitrogen 25 MG/DL (7-18); Calcium 7.7 MG/DL (8.5-10.1); Glucose 292 MG/DL (74-106); Osmolality,Calculated 287.8 MOS/KG (273-304); Potassium 4.2 MMOL/L (3.5-5.1); Sodium 137 MMOL/L (136-145); Total Protein 4.6 G/DL (6.4-8.3)
[2017-02-28] MEDS ORDERED: PHENYLEPHRINE DRIP 40 MG/250 ML PREMIX IV ONE (09:30)
[2017-02-28] MEDS: ENOXAPARIN 40 MG/0.4 ML SYRINGE SUBCUT SCH (09:39)
[2017-02-28] MEDS: FUROSEMIDE 20 MG/2 ML VIAL IV SCH ×2 (09:39→15:10)
[2017-02-28] MEDS: LACTOBACILLUS ACIDOPHILUS/BULGARICUS CAPLET PO SCH ×2 (09:39→21:40)
[2017-02-28] MEDS: LANSOPRAZOLE ODT 30 MG TABLET PO SCH (09:40)
[2017-02-28] MEDS: BENZONATATE 100 MG CAPSULE PO SCH ×2 (09:40→21:39)
[2017-02-28] MEDS: AMIODARONE 200 MG TABLET PO SCH ×2 (09:40→21:40)
[2017-02-28] MEDS: ESCITALOPRAM 10 MG TABLET PO SCH (09:40)
[2017-02-28] MEDS: MULTIVITAMIN (BEROCCA) TABLET PO SCH (09:40)
[2017-02-28] MEDS: POTASSIUM CHLORIDE 20 MEQ TABLET PO SCH (09:40)
[2017-02-28] MEDS: FLUCONAZOLE 100 MG TABLET PO SCH (09:40)
[2017-02-28] MEDS: MULTIVITAMIN (CENTRUM) TABLET PO SCH (09:40)
[2017-02-28] MEDS: FLUTICASONE 50 MCG NASAL SPRAY 16 GM BOTTLE BOTH NARES SCH ×2 (09:41→21:40)
[2017-02-28] MEDS: PHENYLEPHRINE DRIP 40 MG/250 ML PREMIX IV SCH (09:45)
[2017-02-28 10:18] LABS: Albumin (SPE) Rel % 54.6 %; Alpha 1 (SPE) 0.4 G/DL (0.1-0.4); Alpha 1 (SPE) Rel % 6.8 %; Alpha 2 (SPE) 0.9 G/DL (0.4-1.0); Alpha 2 (SPE) Rel % 16.6 %; Beta (SPE) 0.8 G/DL (0.5-1.1); Beta (SPE) Rel % 14.3 %; Gamma (SPE) 0.4 G/DL (0.7-1.7); Gamma (SPE) Rel % 7.7 %; Total Protein (Chem) 5.4 G/DL (6.4-8.3)
[2017-02-28 10:26] LABS: Immunoglobulin A (Chem) 120 MG/DL (70-400); Immunoglobulin G (Chem) 468 MG/DL (700-1600); Immunoglobulin M (Chem) < 21 MG/DL (40-230)
[2017-02-28] MEDS: fentaNYL INJ 1,250 MCG in SODIUM CHLORIDE 0.9% 225 ML IV SCH ×2 (13:13→20:45)
[2017-03-01] MEDS: TRIMETH IV SCH ×4 (00:38→18:07)
[2017-03-01] MEDS: DEXTROSE 5% IV SCH ×4 (00:38→18:07)
[2017-03-01] MEDS: SULFAMETH IV SCH ×4 (00:38→18:07)
[2017-03-01] MEDS: methylPREDNISolone SOD SUC 40 MG/1 ML VIAL IV SCH ×3 (00:39→16:47)
[2017-03-01] MEDS: INSULIN LISPRO 100 UNIT/ML SUBCUT SCH ×4 (00:40→18:08)
[2017-03-01] MEDS: PROPOFOL 1,000 MG/100 ML BOTTLE IV SCH ×5 (02:10→21:33)
[2017-03-01] MEDS: ALBUTEROL/IPRATROPIUM 3 ML NEB RESP TX SCH ×7 (02:40→23:45)
[2017-03-01 02:57] LABS: Allen Test Positive; Pt O2 Delivery Device Ventilator
[2017-03-01 03:02] LABS: ABG Base Excess -2.9 MMOL/L (-2.5-2.5); ABG HCO3 21.9 MMOL/L (20-26); ABG PCO2 40.2 MM HG (35-48); ABG PH 7.354 (7.35-7.45); ABG PO2 66.7 MM HG (80-95); ABG TCO2 20.6 MMOL/L (23-27)
[2017-03-01] MEDS: VANCOMYCIN INJ 1,250 MG in SODIUM CHLORIDE 0.45% 250 ML IV SCH (03:57)
[2017-03-01] MEDS: fentaNYL INJ 1,250 MCG in SODIUM CHLORIDE 0.9% 225 ML IV SCH ×3 (04:00→19:45)
[2017-03-01 04:56] LABS: Hematocrit 32.1 VOL% (35.7-47.0); Hemoglobin 9.9 GM/DL (12.0-16.0); Immature Granulocytes % 0.8 %; Immature Granulocytes Absolute 0.65 #; Lymphocytes % 92.1 % (21.3-54.2); Mean Corpuscular HGB Conc 30.8 GM/DL (32-36); Mean Corpuscular Hemoglobin 27 PG (27-34); Mean Corpuscular Volume 88.9 FL (87-102); Mean Platelet Volume 11.1 FL (9.6-12.0); Monocytes # 2.3 10*3/uL (0.11-0.8); Neutrophils # 3.1 10*3/uL (1.4-7.4); Neutrophils % 4.1 % (38.7-73.9); Platelet Count 207 T/CUMM (130-400); Red Blood Count 3.61 MC/CUMM (3.8-5.5); Red Cell Distribution Width 15.6 % (9.3-17.3)
[2017-03-01 05:11] LABS: White Blood Count 77.1 T/CUMM (4-12)
[2017-03-01 05:23] LABS: Lymphocytes 98 % (20-55); Segmented Neutrophils 1 % (50-85); Total Cells Counted 100
[2017-03-01 05:24] LABS: Atypical Lymphocytes Moderate; Hypochromasia 1+; Microcytosis 1+; Ovalocytes Slight; Platelet Estimate Normal
[2017-03-01 05:25] LABS: Smudge Cells Few
[2017-03-01 05:42] LABS: Calcium 7.4 MG/DL (8.5-10.1); Magnesium 2.7 MG/DL (1.8-2.4); Osmolality,Calculated 286.5 MOS/KG (273-304); Phosphorous 4.5 MG/DL (2.5-4.9); Potassium 4.2 MMOL/L (3.5-5.1); Prealbumin 9.8 MG/DL (20-40)
[2017-03-01] MEDS: PIPERACILLIN/TAZOBACTAM 3,375 MG in SODIUM CHLORIDE 0.9% 100 ML IV SCH ×3 (05:46→21:37)
[2017-03-01] MEDS: PHENYLEPHRINE DRIP 40 MG/250 ML PREMIX IV SCH ×2 (07:12→13:57)
[2017-03-01] MEDS: LACTOBACILLUS ACIDOPHILUS/BULGARICUS CAPLET PO SCH ×2 (09:13→21:25)
[2017-03-01] MEDS: BENZONATATE 100 MG CAPSULE PO SCH ×2 (09:13→21:25)
[2017-03-01] MEDS: ESCITALOPRAM 10 MG TABLET PO SCH (09:14)
[2017-03-01] MEDS: MULTIVITAMIN (CENTRUM) TABLET PO SCH (09:14)
[2017-03-01] MEDS: FUROSEMIDE 20 MG/2 ML VIAL IV SCH ×2 (09:14→16:25)
[2017-03-01] MEDS: LANSOPRAZOLE ODT 30 MG TABLET PO SCH (09:14)
[2017-03-01] MEDS: MULTIVITAMIN (BEROCCA) TABLET PO SCH (09:14)
[2017-03-01] MEDS: FLUCONAZOLE 100 MG TABLET PO SCH (09:15)
[2017-03-01] MEDS: AMIODARONE 200 MG TABLET PO SCH ×2 (09:15→21:25)
[2017-03-01] MEDS: FLUTICASONE 50 MCG NASAL SPRAY 16 GM BOTTLE BOTH NARES SCH ×2 (09:15→21:29)
[2017-03-01] MEDS: POTASSIUM CHLORIDE 20 MEQ TABLET PO SCH (09:15)
[2017-03-01] MEDS: INSULIN GLARGINE 100 UNIT/ML SUBCUT SCH (09:45)
[2017-03-01] MEDS: ENOXAPARIN 40 MG/0.4 ML SYRINGE SUBCUT SCH (11:26)
[2017-03-02] MEDS: PHENYLEPHRINE DRIP 40 MG/250 ML PREMIX IV SCH ×4 (00:06→21:54)
[2017-03-02] MEDS: SULFAMETH IV SCH ×3 (00:19→21:19)
[2017-03-02] MEDS: DEXTROSE 5% IV SCH ×3 (00:19→21:19)
[2017-03-02] MEDS: TRIMETH IV SCH ×3 (00:19→21:19)
[2017-03-02] MEDS: methylPREDNISolone SOD SUC 40 MG/1 ML VIAL IV SCH ×3 (00:20→16:54)
[2017-03-02] MEDS: INSULIN LISPRO 100 UNIT/ML SUBCUT SCH ×4 (00:21→18:20)
[2017-03-02] MEDS: ALBUTEROL/IPRATROPIUM 3 ML NEB RESP TX SCH ×6 (02:34→23:20)
[2017-03-02] MEDS: fentaNYL INJ 1,250 MCG in SODIUM CHLORIDE 0.9% 225 ML IV SCH ×3 (03:06→19:10)
[2017-03-02 03:32] LABS: ABG Base Excess -8.4 MMOL/L (-2.5-2.5); ABG HCO3 17.7 MMOL/L (20-26); ABG Oxygen Saturation 95.7 % (95-100); ABG PH 7.253 (7.35-7.45); ABG PO2 94.4 MM HG (80-95); ABG TCO2 16.8 MMOL/L (23-27); Pt O2 Delivery Device Ventilator
[2017-03-02] MEDS: PROPOFOL 1,000 MG/100 ML BOTTLE IV SCH ×3 (03:51→17:57)
[2017-03-02 04:49] LABS: Hematocrit 39.6 VOL% (35.7-47.0); Hemoglobin 12.2 GM/DL (12.0-16.0); Immature Granulocytes % 0.9 %; Lymphocytes # 90.6 10*3/uL (1.4-4.0); Lymphocytes % 93.1 % (21.3-54.2); Mean Corpuscular HGB Conc 30.8 GM/DL (32-36); Mean Corpuscular Hemoglobin 27 PG (27-34); Mean Platelet Volume 11.5 FL (9.6-12.0); Monocytes # 2.3 10*3/uL (0.11-0.8); Monocytes % 2.4 % (1.7-12.7); Neutrophils # 3.5 10*3/uL (1.4-7.4); Neutrophils % 3.6 % (38.7-73.9); Platelet Count 230 T/CUMM (130-400); Red Blood Count 4.45 MC/CUMM (3.8-5.5)
[2017-03-02 04:55] LABS: White Blood Count 97.3 T/CUMM (4-12)
[2017-03-02 05:05] LABS: Magnesium 2.6 MG/DL (1.8-2.4); Osmolality,Calculated 281.2 MOS/KG (273-304); Potassium 5.4 MMOL/L (3.5-5.1)
[2017-03-02] MEDS ORDERED: SODIUM CHLORIDE 0.9% 250 ML IV ONE (05:23)
[2017-03-02] MEDS: PIPERACILLIN/TAZOBACTAM 3,375 MG in SODIUM CHLORIDE 0.9% 100 ML IV SCH ×2 (05:34→16:54)
[2017-03-02 05:35] LABS: Lymphocytes 99 % (20-55); Total Cells Counted 100
[2017-03-02 05:37] LABS: Atypical Lymphocytes Moderate; Ovalocytes 2+; Platelet Estimate Normal
[2017-03-02 05:38] LABS: Segmented Neutrophils 1 % (50-85)
[2017-03-02] MEDS: ENOXAPARIN 40 MG/0.4 ML SYRINGE SUBCUT SCH (09:23)
[2017-03-02] MEDS: MULTIVITAMIN (BEROCCA) TABLET PO SCH (09:24)
[2017-03-02] MEDS: INSULIN GLARGINE 100 UNIT/ML SUBCUT SCH ×2 (09:24→11:11)
[2017-03-02] MEDS: AMIODARONE 200 MG TABLET PO SCH ×2 (09:24→21:19)
[2017-03-02] MEDS: LACTOBACILLUS ACIDOPHILUS/BULGARICUS CAPLET PO SCH ×2 (09:24→21:19)
[2017-03-02] MEDS: BENZONATATE 100 MG CAPSULE PO SCH (09:24)
[2017-03-02] MEDS: MULTIVITAMIN (CENTRUM) TABLET PO SCH (09:24)
[2017-03-02] MEDS: LANSOPRAZOLE ODT 30 MG TABLET PO SCH (09:25)
[2017-03-02] MEDS: ESCITALOPRAM 10 MG TABLET PO SCH (09:25)
[2017-03-02] MEDS: FLUCONAZOLE 100 MG TABLET PO SCH (09:25)
[2017-03-02] MEDS: POTASSIUM CHLORIDE 20 MEQ TABLET PO SCH (09:25)
[2017-03-02] MEDS: FLUTICASONE 50 MCG NASAL SPRAY 16 GM BOTTLE BOTH NARES SCH (09:25)
[2017-03-02] MEDS: FUROSEMIDE 20 MG/2 ML VIAL IV SCH (09:36)
[2017-03-02] MEDS: SODIUM CHLORIDE 0.9% 1,000 ML IV SCH (11:20)
[2017-03-02] MEDS ORDERED: IMMUNE GLOBULIN 10% 20 GM, IMMUNE GLOBULIN 10% 10 GM in PREMIX 1 EACH IV ONE (13:00)
[2017-03-03] MEDS: PROPOFOL 1,000 MG/100 ML BOTTLE IV SCH ×3 (00:01→17:52)
[2017-03-03] MEDS: FLUTICASONE 50 MCG NASAL SPRAY 16 GM BOTTLE BOTH NARES SCH ×3 (00:03→21:44)
[2017-03-03] MEDS: SODIUM CHLORIDE 0.9% 1,000 ML IV SCH (00:04)
[2017-03-03] MEDS: methylPREDNISolone SOD SUC 40 MG/1 ML VIAL IV SCH ×3 (00:59→16:48)
[2017-03-03] MEDS: fentaNYL INJ 1,250 MCG in SODIUM CHLORIDE 0.9% 225 ML IV SCH (02:38)
[2017-03-03] MEDS: ALBUTEROL/IPRATROPIUM 3 ML NEB RESP TX SCH ×6 (02:48→23:19)
[2017-03-03] MEDS ORDERED: SODIUM CHLORIDE 0.9% 250 ML IV ONE (03:15)
[2017-03-03 04:09] LABS: ABG Base Excess -12.9 MMOL/L (-2.5-2.5); ABG PCO2 47.8 MM HG (35-48); ABG PO2 117.1 MM HG (80-95); ABG TCO2 17.4 MMOL/L (23-27)
[2017-03-03] MEDS: PIPERACILLIN/TAZOBACTAM 3,375 MG in SODIUM CHLORIDE 0.9% 100 ML IV SCH ×2 (04:12→16:48)
[2017-03-03 04:13] LABS: ABG PH 7.142 (7.35-7.45)
[2017-03-03] MEDS: SODIUM BICARB INJ 50 MEQ in SODIUM CHLORIDE 0.45% 1,000 ML IV SCH ×3 (05:27→21:43)
[2017-03-03] MEDS: INSULIN LISPRO 100 UNIT/ML SUBCUT SCH ×4 (05:36→17:49)
[2017-03-03] MEDS: DEXTROSE 5% IV SCH ×2 (05:41→17:49)
[2017-03-03] MEDS: TRIMETH IV SCH ×2 (05:41→17:49)
[2017-03-03] MEDS: SULFAMETH IV SCH ×2 (05:41→17:49)
[2017-03-03 06:40] LABS: Basophils # 0.1 10*3/uL (0.0-0.2); Basophils % 0.1 % (0.0-0.8); Hematocrit 37.3 VOL% (35.7-47.0); Hemoglobin 11.5 GM/DL (12.0-16.0); Immature Granulocytes % 0.8 %; Immature Granulocytes Absolute 0.49 #; Lymphocytes # 53.7 10*3/uL (1.4-4.0); Mean Corpuscular HGB Conc 30.8 GM/DL (32-36); Mean Corpuscular Hemoglobin 27 PG (27-34); Mean Corpuscular Volume 88.6 FL (87-102); Mean Platelet Volume 12.2 FL (9.6-12.0); Monocytes # 2.9 10*3/uL (0.11-0.8); Monocytes % 4.9 % (1.7-12.7); NRBC # 0.03 10*3/uL; Neutrophils # 2.5 10*3/uL (1.4-7.4); Neutrophils % 4.2 % (38.7-73.9); Platelet Count 132 T/CUMM (130-400); Red Blood Count 4.21 MC/CUMM (3.8-5.5); Red Cell Distribution Width 16.5 % (9.3-17.3)
[2017-03-03 06:42] LABS: White Blood Count 59.6 T/CUMM (4-12)
[2017-03-03 07:08] LABS: Burr Cells Slight; Hypochromasia 1+; Lymphocytes 92 % (20-55); Platelet Estimate Adequate; Segmented Neutrophils 7 % (50-85); Smudge Cells Few; Total Cells Counted 100
[2017-03-03 07:17] LABS: Calcium 6.7 MG/DL (8.5-10.1); Magnesium 2.8 MG/DL (1.8-2.4); Osmolality,Calculated 280.5 MOS/KG (273-304)
[2017-03-03 07:20] LABS: Potassium 6.7 MMOL/L (3.5-5.1)
[2017-03-03 07:25] LABS: Phosphorous 9.8 MG/DL (2.5-4.9); Prealbumin 15.9 MG/DL (20-40)
[2017-03-03] MEDS ORDERED: SORBITOL 30 ML BOTTLE PO PRN (07:34)
[2017-03-03] MEDS ORDERED: SODIUM POLYSTYRENE SULFATE 15 GM/60 ML BOTTLE PO ONE (07:34)
[2017-03-03] MEDS: FLUCONAZOLE 100 MG TABLET PO SCH (08:53)
[2017-03-03] MEDS: LANSOPRAZOLE ODT 30 MG TABLET PO SCH (08:53)
[2017-03-03] MEDS: LACTOBACILLUS ACIDOPHILUS/BULGARICUS CAPLET PO SCH ×2 (08:53→21:43)
[2017-03-03] MEDS: MULTIVITAMIN (CENTRUM) TABLET PO SCH (08:53)
[2017-03-03] MEDS: MULTIVITAMIN (BEROCCA) TABLET PO SCH (08:53)
[2017-03-03] MEDS: ESCITALOPRAM 10 MG TABLET PO SCH (08:53)
[2017-03-03] MEDS: AMIODARONE 200 MG TABLET PO SCH ×2 (08:53→21:43)
[2017-03-03] MEDS: INSULIN GLARGINE 100 UNIT/ML SUBCUT SCH ×2 (08:54→14:24)
[2017-03-03] MEDS ORDERED: ENOXAPARIN 30 MG/0.3 ML SYRINGE SUBCUT SCH (09:00)
[2017-03-03] MEDS ORDERED: INSULIN REGULAR 100 UNIT/ML IV ONE (09:03)
[2017-03-03] MEDS ORDERED: SODIUM BICARBONATE 50 MEQ/50 ML SYRINGE IV ONE ×2 (09:19→16:21)
[2017-03-03] MEDS ORDERED: SODIUM BICARB INJ 100 MEQ in DEXTROSE 5% 1,000 ML IV SCH (09:30)
[2017-03-03] MEDS: ALUMINUM/MAGNES/SIMETH MAX STR 30 ML UDCUP PO SCH ×4 (09:51→21:43)
[2017-03-03] MEDS: BISACODYL 10 MG SUPP RECTAL SCH (09:51)
[2017-03-03] MEDS ORDERED: CALCIUM GLUCONATE 2,000 MG in SODIUM CHLORIDE 0.9% 100 ML IV ONE (10:30)
[2017-03-03] MEDS: PHENYLEPHRINE DRIP 40 MG/250 ML PREMIX IV SCH (10:45)
[2017-03-03] MEDS: METOCLOPRAMIDE 10 MG/2 ML VIAL IV SCH ×2 (12:28→17:49)
[2017-03-03] MEDS: ENOXAPARIN 100 MG/ML SYRINGE SUBCUT SCH (14:24)
[2017-03-03 16:02] LABS: Calcium 6.5 MG/DL (8.5-10.1); Osmolality,Calculated 277.6 MOS/KG (273-304)
[2017-03-03 16:14] LABS: Potassium 6.6 MMOL/L (3.5-5.1)
[2017-03-03] MEDS: SODIUM CHLORIDE 23.4% CONC INJ 38.5 MEQ, SODIUM BICARB INJ 100 MEQ in STERILE WATER INJ... IV SCH (23:15)
[2017-03-04] MEDS: methylPREDNISolone SOD SUC 40 MG/1 ML VIAL IV SCH ×3 (00:31→16:38)
[2017-03-04] MEDS: ALUMINUM/MAGNES/SIMETH MAX STR 30 ML UDCUP PO SCH ×6 (00:34→20:56)
[2017-03-04] MEDS: METOCLOPRAMIDE 10 MG/2 ML VIAL IV SCH ×4 (00:34→19:03)
[2017-03-04] MEDS: INSULIN LISPRO 100 UNIT/ML SUBCUT SCH ×5 (00:34→23:40)
[2017-03-04] MEDS: TRIMETH IV SCH ×2 (00:44→10:03)
[2017-03-04] MEDS: DEXTROSE 5% IV SCH ×2 (00:44→10:03)
[2017-03-04] MEDS: SULFAMETH IV SCH ×2 (00:44→10:03)
[2017-03-04 02:18] LABS: Basophils # 0.1 10*3/uL (0.0-0.2); Basophils % 0.5 % (0.0-0.8); Hematocrit 26.6 VOL% (35.7-47.0); Hemoglobin 8.5 GM/DL (12.0-16.0); Immature Granulocytes % 1.3 %; Immature Granulocytes Absolute 0.36 #; Lymphocytes # 25.9 10*3/uL (1.4-4.0); Lymphocytes % 93.3 % (21.3-54.2); Mean Corpuscular Hemoglobin 28 PG (27-34); Mean Corpuscular Volume 88.4 FL (87-102); Mean Platelet Volume 11.8 FL (9.6-12.0); Monocytes # 0.3 10*3/uL (0.11-0.8); Monocytes % 1.2 % (1.7-12.7); Neutrophils % 3.7 % (38.7-73.9); Platelet Count 71 T/CUMM (130-400); Red Blood Count 3.01 MC/CUMM (3.8-5.5); Red Cell Distribution Width 16.2 % (9.3-17.3); White Blood Count 27.7 T/CUMM (4-12)
[2017-03-04] MEDS: ALBUTEROL/IPRATROPIUM 3 ML NEB RESP TX SCH ×6 (02:59→22:43)
[2017-03-04 03:45] LABS: ABG Base Excess -8.9 MMOL/L (-2.5-2.5); ABG HCO3 17.1 MMOL/L (20-26); ABG Oxygen Saturation 82.3 % (95-100); ABG PCO2 41.1 MM HG (35-48); ABG PH 7.249 (7.35-7.45); ABG PO2 55.3 MM HG (80-95); ABG TCO2 16.7 MMOL/L (23-27)
[2017-03-04 03:54] LABS: Basophils # 0.2 10*3/uL (0.0-0.2); Basophils % 0.6 % (0.0-0.8); Hematocrit 32.1 VOL% (35.7-47.0); Hemoglobin 10.2 GM/DL (12.0-16.0); Immature Granulocytes % 0.9 %; Immature Granulocytes Absolute 0.28 #; Lymphocytes % 93.4 % (21.3-54.2); Mean Corpuscular HGB Conc 31.8 GM/DL (32-36); Mean Corpuscular Hemoglobin 28 PG (27-34); Mean Corpuscular Volume 86.5 FL (87-102); Mean Platelet Volume 13.1 FL (9.6-12.0); Monocytes # 0.4 10*3/uL (0.11-0.8); Monocytes % 1.3 % (1.7-12.7); Neutrophils # 1.2 10*3/uL (1.4-7.4); Neutrophils % 3.8 % (38.7-73.9); Red Cell Distribution Width 16.1 % (9.3-17.3)
[2017-03-04 04:28] LABS: Platelet Count 97 T/CUMM (130-400); Red Blood Count 3.71 MC/CUMM (3.8-5.5)
[2017-03-04 04:36] LABS: ABG Base Excess -8.8 MMOL/L (-2.5-2.5); ABG HCO3 18.3 MMOL/L (20-26); ABG Oxygen Saturation 92.6 % (95-100); ABG PCO2 44.3 MM HG (35-48); ABG PH 7.233 (7.35-7.45); ABG TCO2 19.6 MMOL/L (23-27)
[2017-03-04] MEDS: PIPERACILLIN/TAZOBACTAM 3,375 MG in SODIUM CHLORIDE 0.9% 100 ML IV SCH ×2 (04:58→16:37)
[2017-03-04 05:02] LABS: Hypochromasia 1+; Lymphocytes 94 % (20-55); Segmented Neutrophils 5 % (50-85); Total Cells Counted 100
[2017-03-04 05:03] LABS: Atypical Lymphocytes Moderate; Microcytosis 1+; Ovalocytes Slight; Smudge Cells Few
[2017-03-04 05:08] LABS: Hypochromasia 1+; Lymphocytes 92 % (20-55); Microcytosis 1+; Segmented Neutrophils 7 % (50-85); Total Cells Counted 100
[2017-03-04 05:09] LABS: Atypical Lymphocytes Moderate; Ovalocytes Slight; Platelet Estimate Decreased; Smudge Cells Few
[2017-03-04 05:10] LABS: Burr Cells Slight
[2017-03-04 05:56] LABS: Calcium 6.3 MG/DL (8.5-10.1); Magnesium 2.8 MG/DL (1.8-2.4); Osmolality,Calculated 280.8 MOS/KG (273-304); Potassium 6.2 MMOL/L (3.5-5.1)
[2017-03-04] MEDS: PROPOFOL 1,000 MG/100 ML BOTTLE IV SCH ×2 (06:07→15:02)
[2017-03-04] MEDS ORDERED: INSULIN REGULAR 100 UNIT/ML IV ONE (08:45)
[2017-03-04] MEDS ORDERED: SODIUM POLYSTYRENE SULFATE 15 GM/60 ML BOTTLE PO ONE (08:47)
[2017-03-04] MEDS: INSULIN GLARGINE 100 UNIT/ML SUBCUT SCH (09:03)
[2017-03-04] MEDS: LACTOBACILLUS ACIDOPHILUS/BULGARICUS CAPLET PO SCH ×2 (09:05→20:17)
[2017-03-04] MEDS: MULTIVITAMIN (BEROCCA) TABLET PO SCH (09:06)
[2017-03-04] MEDS: FLUCONAZOLE 100 MG TABLET PO SCH (09:06)
[2017-03-04] MEDS: LANSOPRAZOLE ODT 30 MG TABLET PO SCH (09:06)
[2017-03-04] MEDS: MULTIVITAMIN (CENTRUM) TABLET PO SCH (09:06)
[2017-03-04] MEDS: AMIODARONE 200 MG TABLET PO SCH ×2 (09:06→20:17)
[2017-03-04] MEDS: ESCITALOPRAM 10 MG TABLET PO SCH (09:06)
[2017-03-04] MEDS ORDERED: CALCIUM GLUCONATE 2,000 MG in SODIUM CHLORIDE 0.9% 100 ML IV ONE (09:30)
[2017-03-04] MEDS: PHENYLEPHRINE DRIP 40 MG/250 ML PREMIX IV SCH (09:32)
[2017-03-04] MEDS: FLUTICASONE 50 MCG NASAL SPRAY 16 GM BOTTLE BOTH NARES SCH ×2 (09:33→20:26)
[2017-03-04] MEDS: SODIUM CHLORIDE 23.4% CONC INJ 38.5 MEQ, SODIUM BICARB INJ 100 MEQ in STERILE WATER INJ... IV SCH (09:43)
[2017-03-04 11:38] LABS: Hepatitis A Ab IgM Quant 0.14 Index; Hepatitis A Ab IgM Result Negative (Negative); Hepatitis B Core IgM Quant 0.09 Index; Hepatitis B Core IgM Result Negative (Negative); Hepatitis B Surface Ag Quant < 0.10 Index; Hepatitis B Surface Ag Result Negative (Negative); Hepatitis C Virus Ab Quant < 0.02 Index; Hepatitis C Virus Ab Result Negative (Negative)
[2017-03-04] MEDS: BISACODYL 10 MG SUPP RECTAL SCH (12:29)
[2017-03-04] MEDS: ENOXAPARIN 100 MG/ML SYRINGE SUBCUT SCH (15:19)
[2017-03-04] MEDS: ENOXAPARIN 30 MG/0.3 ML SYRINGE SUBCUT SCH (15:35)
[2017-03-04] MEDS: MINERAL OIL/PETROLATUM OPH OINT 3.5 GM TUBE BOTH EYES SCH (20:17)
[2017-03-04] MEDS: POLYVINYL ALCOHOL 1.4% OPH SOLN 15 ML BOTTLE BOTH EYES PRN (20:17)
[2017-03-05] MEDS: methylPREDNISolone SOD SUC 40 MG/1 ML VIAL IV SCH ×3 (00:14→16:36)
[2017-03-05] MEDS: METOCLOPRAMIDE 10 MG/2 ML VIAL IV SCH ×5 (00:17→23:57)
[2017-03-05] MEDS: PROPOFOL 1,000 MG/100 ML BOTTLE IV SCH ×2 (00:33→17:56)
[2017-03-05] MEDS: ALUMINUM/MAGNES/SIMETH MAX STR 30 ML UDCUP PO SCH ×6 (02:14→21:17)
[2017-03-05] MEDS: ALBUTEROL/IPRATROPIUM 3 ML NEB RESP TX SCH ×6 (03:42→22:09)
[2017-03-05 03:45] LABS: ABG Base Excess -0.9 MMOL/L (-2.5-2.5); ABG HCO3 23.6 MMOL/L (20-26); ABG Oxygen Saturation 96.6 % (95-100); ABG PCO2 49.4 MM HG (35-48); ABG PH 7.328 (7.35-7.45); ABG TCO2 22.3 MMOL/L (23-27); Allen Test Positive; Pt O2 Delivery Device Ventilator
[2017-03-05 04:36] LABS: Basophils # 0.1 10*3/uL (0.0-0.2); Basophils % 0.4 % (0.0-0.8); Hematocrit 26.8 VOL% (35.7-47.0); Hemoglobin 8.8 GM/DL (12.0-16.0); Immature Granulocytes % 0.8 %; Immature Granulocytes Absolute 0.17 #; Lymphocytes # 19.7 10*3/uL (1.4-4.0); Mean Corpuscular HGB Conc 32.8 GM/DL (32-36); Mean Corpuscular Hemoglobin 28 PG (27-34); Mean Corpuscular Volume 85.4 FL (87-102); Mean Platelet Volume 13.2 FL (9.6-12.0); Monocytes # 0.2 10*3/uL (0.11-0.8); Monocytes % 0.9 % (1.7-12.7); NRBC # 0.02 10*3/uL; Neutrophils # 0.8 10*3/uL (1.4-7.4); Neutrophils % 3.9 % (38.7-73.9); Platelet Count 79 T/CUMM (130-400); Red Blood Count 3.14 MC/CUMM (3.8-5.5); Red Cell Distribution Width 16.2 % (9.3-17.3); White Blood Count 20.9 T/CUMM (4-12)
[2017-03-05] MEDS: INSULIN LISPRO 100 UNIT/ML SUBCUT SCH ×4 (05:17→23:56)
[2017-03-05 05:27] LABS: Albumin 1.5 G/DL (3.4-5.0); Calcium 6.6 MG/DL (8.5-10.1); Osmolality,Calculated 284.5 MOS/KG (273-304); Phosphorous 8.3 MG/DL (2.5-4.9); Potassium 5.1 MMOL/L (3.5-5.1)
[2017-03-05] MEDS: PIPERACILLIN/TAZOBACTAM 3,375 MG in SODIUM CHLORIDE 0.9% 100 ML IV SCH ×2 (05:37→18:01)
[2017-03-05 07:40] LABS: Lymphocytes 93 % (20-55); Segmented Neutrophils 7 % (50-85); Total Cells Counted 100
[2017-03-05 07:41] LABS: Atypical Lymphocytes Moderate; Hypochromasia 1+; Platelet Estimate Decreased
[2017-03-05] MEDS: INSULIN GLARGINE 100 UNIT/ML SUBCUT SCH (08:54)
[2017-03-05] MEDS: FLUTICASONE 50 MCG NASAL SPRAY 16 GM BOTTLE BOTH NARES SCH ×2 (08:54→21:20)
[2017-03-05] MEDS: MULTIVITAMIN (BEROCCA) TABLET PO SCH (09:16)
[2017-03-05] MEDS: FLUCONAZOLE 100 MG TABLET PO SCH (09:26)
[2017-03-05] MEDS: LACTOBACILLUS ACIDOPHILUS/BULGARICUS CAPLET PO SCH ×2 (09:26→21:18)
[2017-03-05] MEDS: ESCITALOPRAM 10 MG TABLET PO SCH (09:27)
[2017-03-05] MEDS: MULTIVITAMIN (CENTRUM) TABLET PO SCH (09:27)
[2017-03-05] MEDS: AMIODARONE 200 MG TABLET PO SCH ×2 (09:27→21:18)
[2017-03-05] MEDS: LANSOPRAZOLE ODT 30 MG TABLET PO SCH (09:28)
[2017-03-05] MEDS: BISACODYL 10 MG SUPP RECTAL SCH (09:41)
[2017-03-05] MEDS: PHENYLEPHRINE DRIP 40 MG/250 ML PREMIX IV SCH (09:41)
[2017-03-05] MEDS: ENOXAPARIN 30 MG/0.3 ML SYRINGE SUBCUT SCH (16:42)
[2017-03-05] MEDS: ACYCLOVIR 40 MG/ML 30 ML/BOTTLE PO SCH ×2 (17:18→21:17)
[2017-03-05] MEDS ORDERED: HEPARIN 10,000 UNIT/10 ML VIAL IV PRN (18:31)
[2017-03-05] MEDS: POLYVINYL ALCOHOL 1.4% OPH SOLN 15 ML BOTTLE BOTH EYES PRN (21:20)
[2017-03-05] MEDS: MINERAL OIL/PETROLATUM OPH OINT 3.5 GM TUBE BOTH EYES SCH (21:20)
[2017-03-06] MEDS: methylPREDNISolone SOD SUC 40 MG/1 ML VIAL IV SCH ×3 (01:45→17:07)
[2017-03-06] MEDS: ALUMINUM/MAGNES/SIMETH MAX STR 30 ML UDCUP PO SCH ×6 (01:45→21:52)
[2017-03-06] MEDS: ALBUTEROL/IPRATROPIUM 3 ML NEB RESP TX SCH ×6 (02:50→22:45)
[2017-03-06 03:59] LABS: ABG Base Excess 1.4 MMOL/L (-2.5-2.5); ABG HCO3 25.6 MMOL/L (20-26); ABG Oxygen Saturation 94.3 % (95-100); ABG PCO2 50.3 MM HG (35-48); ABG PH 7.348 (7.35-7.45); ABG PO2 77.7 MM HG (80-95); ABG TCO2 25.3 MMOL/L (23-27); Allen Test Positive; Pt O2 Delivery Device Ventilator
[2017-03-06 05:18] LABS: Albumin 1.6 G/DL (3.4-5.0); Calcium 6.9 MG/DL (8.5-10.1); Osmolality,Calculated 285.1 MOS/KG (273-304); Phosphorous 5.8 MG/DL (2.5-4.9); Potassium 4.7 MMOL/L (3.5-5.1)
[2017-03-06] MEDS: METOCLOPRAMIDE 10 MG/2 ML VIAL IV SCH ×4 (05:48→23:55)
[2017-03-06] MEDS: PIPERACILLIN/TAZOBACTAM 3,375 MG in SODIUM CHLORIDE 0.9% 100 ML IV SCH ×2 (05:50→17:07)
[2017-03-06 05:59] LABS: Basophils # 0.1 10*3/uL (0.0-0.2); Basophils % 0.4 % (0.0-0.8); Hemoglobin 8.3 GM/DL (12.0-16.0); Immature Granulocytes % 0.9 %; Lymphocytes # 20.8 10*3/uL (1.4-4.0); Lymphocytes % 90.5 % (21.3-54.2); Mean Corpuscular HGB Conc 31.9 GM/DL (32-36); Mean Corpuscular Hemoglobin 28 PG (27-34); Mean Corpuscular Volume 86.4 FL (87-102); Mean Platelet Volume 13.1 FL (9.6-12.0); Monocytes # 0.3 10*3/uL (0.11-0.8); Monocytes % 1.3 % (1.7-12.7); NRBC # 0.02 10*3/uL; Neutrophils # 1.6 10*3/uL (1.4-7.4); Neutrophils % 6.9 % (38.7-73.9); Platelet Count 84 T/CUMM (130-400); Red Blood Count 3.01 MC/CUMM (3.8-5.5); Red Cell Distribution Width 16.1 % (9.3-17.3); White Blood Count 22.9 T/CUMM (4-12)
[2017-03-06] MEDS: INSULIN LISPRO 100 UNIT/ML SUBCUT SCH ×4 (07:04→23:54)
[2017-03-06 08:02] LABS: Atypical Lymphocytes Moderate; Hypochromasia 1+; Lymphocytes 91 % (20-55); Microcytosis 1+; Platelet Estimate Decreased; Segmented Neutrophils 7 % (50-85); Total Cells Counted 100
[2017-03-06] MEDS: PROPOFOL 1,000 MG/100 ML BOTTLE IV SCH (08:10)
[2017-03-06] MEDS: LANSOPRAZOLE ODT 30 MG TABLET PO SCH (09:20)
[2017-03-06] MEDS: AMIODARONE 200 MG TABLET PO SCH ×2 (09:20→21:49)
[2017-03-06] MEDS: FLUCONAZOLE 100 MG TABLET PO SCH (09:20)
[2017-03-06] MEDS: MULTIVITAMIN (CENTRUM) TABLET PO SCH (09:20)
[2017-03-06] MEDS: LACTOBACILLUS ACIDOPHILUS/BULGARICUS CAPLET PO SCH ×2 (09:20→21:49)
[2017-03-06] MEDS: ESCITALOPRAM 10 MG TABLET PO SCH (09:20)
[2017-03-06] MEDS: ACYCLOVIR 40 MG/ML 30 ML/BOTTLE PO SCH ×3 (09:22→21:51)
[2017-03-06] MEDS: FLUTICASONE 50 MCG NASAL SPRAY 16 GM BOTTLE BOTH NARES SCH ×2 (09:27→21:50)
[2017-03-06] MEDS: PHENYLEPHRINE DRIP 40 MG/250 ML PREMIX IV SCH (15:00)
[2017-03-06] MEDS: MINERAL OIL/PETROLATUM OPH OINT 3.5 GM TUBE BOTH EYES SCH (21:53)
[2017-03-07] MEDS: methylPREDNISolone SOD SUC 40 MG/1 ML VIAL IV SCH ×3 (00:39→17:18)
[2017-03-07] MEDS: ACETAMINOPHEN 325 MG TABLET PO PRN ×2 (00:41→17:00)
[2017-03-07] MEDS: ALUMINUM/MAGNES/SIMETH MAX STR 30 ML UDCUP PO SCH ×6 (00:41→22:17)
[2017-03-07] MEDS: PROPOFOL 1,000 MG/100 ML BOTTLE IV SCH ×2 (00:44→20:04)
[2017-03-07] MEDS ORDERED: IPRATROPIUM 500 MCG/2.5 ML NEB RESP TX ONE ×2 (02:19→02:20)
[2017-03-07] MEDS: ALBUTEROL/IPRATROPIUM 3 ML NEB RESP TX SCH ×5 (02:39→19:46)
[2017-03-07 03:02] LABS: ABG Base Excess -1.4 MMOL/L (-2.5-2.5); ABG HCO3 23.1 MMOL/L (20-26); ABG Oxygen Saturation 89.9 % (95-100); ABG PCO2 61.6 MM HG (35-48); ABG PH 7.252 (7.35-7.45); ABG PO2 68.1 MM HG (80-95); ABG TCO2 24.9 MMOL/L (23-27); Allen Test Positive; Pt O2 Delivery Device Ventilator
[2017-03-07] MEDS ORDERED: SODIUM CHLORIDE 0.9% 250 ML IV ONE (03:21)
[2017-03-07] MEDS: PIPERACILLIN/TAZOBACTAM 3,375 MG in SODIUM CHLORIDE 0.9% 100 ML IV SCH ×2 (04:13→18:16)
[2017-03-07 05:18] LABS: Basophils # 0.2 10*3/uL (0.0-0.2); Basophils % 0.5 % (0.0-0.8); Hemoglobin 7.9 GM/DL (12.0-16.0); Immature Granulocytes % 1.7 %; Immature Granulocytes Absolute 0.53 #; Lymphocytes # 28.6 10*3/uL (1.4-4.0); Lymphocytes % 90.5 % (21.3-54.2); Mean Corpuscular HGB Conc 30.4 GM/DL (32-36); Mean Corpuscular Hemoglobin 27 PG (27-34); Monocytes # 0.4 10*3/uL (0.11-0.8); Monocytes % 1.2 % (1.7-12.7); NRBC # 0.03 10*3/uL; Neutrophils # 1.9 10*3/uL (1.4-7.4); Neutrophils % 6.1 % (38.7-73.9); Platelet Count 68 T/CUMM (130-400); Red Blood Count 2.89 MC/CUMM (3.8-5.5); Red Cell Distribution Width 16.1 % (9.3-17.3); White Blood Count 31.6 T/CUMM (4-12)
[2017-03-07 05:51] LABS: Atypical Lymphocytes Moderate; Giant Platelets Few; Hypochromasia 1+; Lymphocytes 98 % (20-55); Microcytosis Slight; Ovalocytes Slight; Platelet Estimate Decreased; Segmented Neutrophils 2 % (50-85); Smudge Cells Few; Total Cells Counted 100
[2017-03-07 05:57] LABS: Albumin 1.4 G/DL (3.4-5.0); Albumin 1.5 G/DL (3.4-5.0); Bilirubin,Total 0.5 MG/DL (0.2-1.0); Calcium 6.9 MG/DL (8.5-10.1); Calcium 7.1 MG/DL (8.5-10.1); Magnesium 3.3 MG/DL (1.8-2.4); Phosphorous 6.1 MG/DL (2.5-4.9); Potassium 5.7 MMOL/L (3.5-5.1); Total Protein 4.4 G/DL (6.4-8.3)
[2017-03-07] MEDS: INSULIN LISPRO 100 UNIT/ML SUBCUT SCH ×3 (06:02→18:16)
[2017-03-07] MEDS: METOCLOPRAMIDE 10 MG/2 ML VIAL IV SCH ×3 (06:03→17:18)
[2017-03-07 07:56] LABS: Pneumocystis jiroveci Result Negative (Negative); Pneumocystis jiroveci Source SPUTUM
[2017-03-07] MEDS ORDERED: SODIUM CHLORIDE 0.9% 1,000 ML IV PRN (08:21)
[2017-03-07] MEDS: LACTOBACILLUS ACIDOPHILUS/BULGARICUS CAPLET PO SCH ×2 (10:06→22:17)
[2017-03-07] MEDS: ACYCLOVIR 40 MG/ML 30 ML/BOTTLE PO SCH ×3 (10:06→22:24)
[2017-03-07] MEDS: AMIODARONE 200 MG TABLET PO SCH ×2 (10:07→10:51)
[2017-03-07] MEDS: ESCITALOPRAM 10 MG TABLET PO SCH (10:07)
[2017-03-07] MEDS: FLUCONAZOLE 100 MG TABLET PO SCH (10:07)
[2017-03-07] MEDS: MULTIVITAMIN (CENTRUM) TABLET PO SCH (10:07)
[2017-03-07] MEDS: LANSOPRAZOLE ODT 30 MG TABLET PO SCH (10:07)
[2017-03-07] MEDS: FLUTICASONE 50 MCG NASAL SPRAY 16 GM BOTTLE BOTH NARES SCH ×2 (10:07→22:18)
[2017-03-07] MEDS: PHENYLEPHRINE DRIP 40 MG/250 ML PREMIX IV SCH (10:33)
[2017-03-07] MEDS ORDERED: AMIODARONE INJ 150 MG in DEXTROSE 5% 100 ML IV ONE (11:15)
[2017-03-07] MEDS ORDERED: AMIODARONE INJ 450 MG in DEXTROSE 5% 241 ML IV SCH ×2 (11:30→12:00)
[2017-03-07] MEDS: METOPROLOL TARTRATE 5 MG/5 ML VIAL IV SCH ×3 (12:51→13:20)
[2017-03-07] MEDS ORDERED: METOPROLOL TARTRATE 50 MG TABLET ONE (13:49)
[2017-03-07] MEDS: METOPROLOL TARTRATE 50 MG TABLET PO SCH ×2 (14:18→22:18)
[2017-03-07] MEDS: VECURONIUM 10 MG VIAL IV PRN ×2 (14:59→19:58)
[2017-03-07] MEDS: MINERAL OIL/PETROLATUM OPH OINT 3.5 GM TUBE BOTH EYES SCH (22:19)
[2017-03-08] MEDS: ALBUTEROL/IPRATROPIUM 3 ML NEB RESP TX SCH ×3 (00:18→07:47)
[2017-03-08] MEDS: PHENYLEPHRINE DRIP 40 MG/250 ML PREMIX IV SCH ×3 (00:34→10:48)
[2017-03-08] MEDS: METOCLOPRAMIDE 10 MG/2 ML VIAL IV SCH ×2 (00:43→06:28)
[2017-03-08] MEDS: INSULIN LISPRO 100 UNIT/ML SUBCUT SCH ×2 (00:44→06:27)
[2017-03-08] MEDS: methylPREDNISolone SOD SUC 40 MG/1 ML VIAL IV SCH ×2 (00:49→09:21)
[2017-03-08] MEDS: ALUMINUM/MAGNES/SIMETH MAX STR 30 ML UDCUP PO SCH ×3 (03:31→09:17)
[2017-03-08] MEDS: PROPOFOL 1,000 MG/100 ML BOTTLE IV SCH (03:52)
[2017-03-08 04:17] LABS: ABG Base Excess -2.1 MMOL/L (-2.5-2.5); ABG HCO3 24.5 MMOL/L (20-26); ABG Oxygen Saturation 96.5 % (95-100); ABG PCO2 50.1 MM HG (35-48); ABG PH 7.308 (7.35-7.45); ABG PO2 95.4 MM HG (80-95); ABG TCO2 26.1 MMOL/L (23-27)
[2017-03-08 05:27] LABS: Hematocrit 36.3 VOL% (35.7-47.0); Hemoglobin 11.1 GM/DL (12.0-16.0); Immature Granulocytes % 0.7 %; Immature Granulocytes Absolute 0.61 #; Lymphocytes # 77.6 10*3/uL (1.4-4.0); Lymphocytes % 92.3 % (21.3-54.2); Mean Corpuscular HGB Conc 30.6 GM/DL (32-36); Mean Corpuscular Hemoglobin 28 PG (27-34); Mean Corpuscular Volume 90.8 FL (87-102); Monocytes % 1.2 % (1.7-12.7); NRBC # 0.39 10*3/uL; Neutrophils # 4.8 10*3/uL (1.4-7.4); Neutrophils % 5.8 % (38.7-73.9); Platelet Count 40 T/CUMM (130-400); Red Cell Distribution Width 17.1 % (9.3-17.3)
[2017-03-08 05:30] LABS: White Blood Count 84.1 T/CUMM (4-12)
[2017-03-08] MEDS: PIPERACILLIN/TAZOBACTAM 3,375 MG in SODIUM CHLORIDE 0.9% 100 ML IV SCH (05:57)
[2017-03-08 06:09] LABS: Hypochromasia 1+; Lymphocytes 94 % (20-55); Nucleated Red Blood Cells 2 (0-5); Segmented Neutrophils 6 % (50-85); Total Cells Counted 100
[2017-03-08 06:10] LABS: Atypical Lymphocytes Moderate; Microcytosis 1+; Ovalocytes Slight; Platelet Estimate Decreased; Polychromasia Slight; Smudge Cells Few
[2017-03-08 06:24] LABS: Albumin 1.4 G/DL (3.4-5.0); Calcium 7.3 MG/DL (8.5-10.1); Osmolality,Calculated 302.7 MOS/KG (273-304); Phosphorous 6.6 MG/DL (2.5-4.9); Potassium 5.9 MMOL/L (3.5-5.1)
[2017-03-08 06:36] LABS: Calcium 7.4 MG/DL (8.5-10.1); Magnesium 3.3 MG/DL (1.8-2.4); Osmolality,Calculated 306.5 MOS/KG (273-304); Potassium 5.9 MMOL/L (3.5-5.1)
[2017-03-08] MEDS ORDERED: PANTOPRAZOLE 40 MG VIAL IV SCH (09:00)
[2017-03-08] MEDS: FLUTICASONE 50 MCG NASAL SPRAY 16 GM BOTTLE BOTH NARES SCH (09:13)
[2017-03-08] MEDS: LACTOBACILLUS ACIDOPHILUS/BULGARICUS CAPLET PO SCH (09:17)
[2017-03-08] MEDS: MULTIVITAMIN (CENTRUM) TABLET PO SCH (09:17)
[2017-03-08] MEDS: FLUCONAZOLE 100 MG TABLET PO SCH (09:17)
[2017-03-08] MEDS: METOPROLOL TARTRATE 50 MG TABLET PO SCH (09:18)
[2017-03-08] MEDS ORDERED: PHENYLEPHRINE INJ 160 MG in SODIUM CHLORIDE 0.45% 234 ML IV SCH (10:00)
[2017-03-08] MEDS: ACYCLOVIR 40 MG/ML 30 ML/BOTTLE PO SCH (10:47)
[2017-03-08] MEDS ORDERED: MORPHINE 2 MG/1 ML SYRINGE IV PRN (11:18)
[2017-03-08 12:00] VITALS: BP 64/32
== END 2017-03-08 11:45 | disposition expired | DRG 207 ==
LOC: N.ED 16:33 → N.EDINP 20:38 → SUATTDRO 20:38 → N.2E 21:24 → N.ICU 02-25 13:47 → N.TELES 02-26 13:18 → N.CVR 02-26 19:43 → N.ICU 02-26 20:13
PROVIDERS: ADMIT Hospitalist; ATTEND Internal Medicine